=== PATIENT | male | born 1995 | race Caucasian/White ===

== ENCOUNTER 2023-01-21 00:24 | Emergency (ER) | payer SELFPAY ==
[~2023-01-21] VITALS: Ht 188 cm; Wt 128.0 kg
[2023-01-21 00:45] VITALS: BP 118/76; PULSE 91; RESP 18; TEMP 98.9; O2SAT 97
[2023-01-21] MEDS ORDERED: HYDROCODONE/ACETAMINOPHEN 5/325MG TABLET PO ONE (03:30)
[2023-01-21] MEDS ORDERED: HYDR-4009 MT (04:47)
[2023-01-21] MEDS ORDERED: IBUP-2029 MT (04:47)
== END 2023-01-21 04:50 | disposition home or self-care (01) ==
LOC: ER 00:24
DX: S52.121A Displaced fracture of head of right radius, initial encounter for closed fracture (principal); W18.39XA Other fall on same level, initial encounter; Z90.49 Acquired absence of other specified parts of digestive tract; Y93.89 Activity, other specified; Y92.89 Other specified places as the place of occurrence of the external cause; Y99.8 Other external cause status
CPT/HCPCS: 29105; 73080; 99283; A4565